=== PATIENT | female | born 2005 | race Caucasian/White ===

== ENCOUNTER 2023-04-12 12:24 | Emergency (ER) | payer OTHER ==
[2023-04-12 13:12] LABS: #Basophils 0.1 thou/uL (0.0-0.2); #Eosinphils 0.2 thou/uL (0.0-0.7); #Monocytes 0.5 thou/uL (0.11-0.59); #Neutrophils 3.9 thou/uL (1.40-6.50); %Basophils 1.1 % (0.0-1.0); %Eosinophils 2.9 % (0.0-10.0); %Lymphocytes 16.4 % (28.0-48.0); %Monocytes 8.8 % (0.0-4.0); %Neutrophils 70.6 % (31.0-61.0); Hematocrit 36.1 % (36.0-47.0); Hemoglobin 11.7 g/dL (12.0-16.0); Mean Corpuscular HGB CONC 32.4 g/dL (32.0-36.0); Mean Corpuscular Hemoglobin 28.9 pg (25.0-35.0); Mean Corpuscular Volume 89.1 fl (78.0-98.0); Mean Platelet Volume 9.5 fL (7.4-10.4); Platelet Count 272 10x3/uL (130-400); RBC Distribution Width 13.3 % (11.5-14.5); Red Blood Cell (RBC) Count 4.05 mill/uL (4.00-5.20); White Blood Cell (WBC) Count 5.5 10x3/uL (4.8-10.8)
[2023-04-12 13:17] LABS: BHCG - Serum Negative (NEGATIVE); Pregs Control Background? CLEAR/WHITE (CLR/WHITE); Pregs Control Bar Appear? YES (CONTROL BAR)
[2023-04-12 13:37] LABS: ALT (SGPT) 34 U/L (8-55); AST (SGOT) 29 U/L (5-30); Albumin 4.1 g/dL (3.5-5.0); Alkaline Phosphatase 119 U/L (40-100); Anion Gap 13 mmol/L (10-20); BUN (Urea Nitrogen) 10 mg/dL (8.4-21.0); Bilirubin, Total 0.5 mg/dL (0.2-1.2); Calc. Creatinine Clearance 0 mL/min (70-130); Calcium 9.4 mg/dL (7.8-10.44); Carbon Dioxide 24 mmol/L (22-29); Chloride 106 mmol/L (98-107); Estimated GFR 98; Globulin 3.3 g/dL (2.4-3.5); Glucose 90 mg/dL (70-105); Protein, Total 7.4 g/dL (6.0-8.3); Sodium 139 mmol/L (136-145)
[2023-04-12] MEDS ORDERED: Ondansetron PF 4 MG/2 ML Vial ONE (15:14)
[2023-04-12] MEDS ORDERED: levETIRAcetam 500 MG/5 ML VIAL ONE (16:28)
== END 2023-04-12 16:37 | disposition home or self-care (01) ==
LOC: ERS 12:24
DX: R56.9 Unspecified convulsions (principal)
CPT/HCPCS: 36415; 70450; 80053; 83605; 84703; 85025; 93005; 96365; 96366; 96375; J1953; J2405